=== PATIENT | male | born 2005 | race Caucasian/White ===

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

== ENCOUNTER 2023-07-06 10:50 | Outpatient (CLI) | payer OTHER, SELFPAY | END 2023-07-06 10:51 | disposition home or self-care (01) | PROVIDERS: PCP Family Medicine; Referring Provider Family Medicine; Visit Provider Family Medicine | DX: Z13.0 Encounter for screening for diseases of the blood and blood-forming organs and certain disorders involving the immune mechanism (principal) | CPT/HCPCS: 83021 ==

== ENCOUNTER 2023-07-18 09:39 | Outpatient (CLI) | payer MEDICAID, OTHER, SELFPAY | END 2023-07-18 09:40 | disposition home or self-care (01) | LOC: NFLDREF 09:41 | PROVIDERS: PCP Family Medicine; Visit Provider Internal Medicine | DX: Z00.00 Encounter for general adult medical examination without abnormal findings (principal); K58.0 Irritable bowel syndrome with diarrhea | CPT/HCPCS: 80053 ==

== ENCOUNTER 2024-01-16 07:56 | Outpatient (CLI) | payer OTHER, SELFPAY | END 2024-01-16 07:57 | disposition home or self-care (01) | LOC: NFLDREF 01-17 11:29 | PROVIDERS: PCP Internal Medicine; Referring Provider Family Medicine; Visit Provider Internal Medicine | DX: Z13.9 Encounter for screening, unspecified (principal); Z11.1 Encounter for screening for respiratory tuberculosis; Z13.6 Encounter for screening for cardiovascular disorders; Z78.9 Other specified health status | CPT/HCPCS: 80053; 80061; 86480 ==

== ENCOUNTER 2024-01-23 13:33 | Outpatient (CLI) | payer OTHER, SELFPAY | END 2024-01-23 13:34 | disposition home or self-care (01) | PROVIDERS: PCP Internal Medicine; Visit Provider Internal Medicine | DX: Z00.00 Encounter for general adult medical examination without abnormal findings (principal); B00.1 Herpesviral vesicular dermatitis; Z13.6 Encounter for screening for cardiovascular disorders; Z78.9 Other specified health status; Z11.1 Encounter for screening for respiratory tuberculosis | CPT/HCPCS: 86706; 86735; 86741; 86762; 86765 ==

== ENCOUNTER 2024-06-24 10:29 | Outpatient (CLI) | payer BC, SELFPAY | END 2024-06-24 10:30 | disposition home or self-care (01) | PROVIDERS: PCP Internal Medicine; Visit Provider Internal Medicine | DX: R53.83 Other fatigue (principal); Z13.29 Encounter for screening for other suspected endocrine disorder | CPT/HCPCS: 80053; 84443 ==

== ENCOUNTER 2025-01-14 13:28 | Outpatient (CLI) | payer BC, SELFPAY | END 2025-01-14 13:29 | disposition home or self-care (01) | LOC: NFLDREF 01-18 15:20 | PROVIDERS: PCP Internal Medicine; Referring Provider Internal Medicine; Visit Provider Internal Medicine | DX: Z13.79 Encounter for other screening for genetic and chromosomal anomalies (principal); R53.83 Other fatigue | CPT/HCPCS: 83021 ==